=== PATIENT | male | born 1985 | race Two or more races ===

== ENCOUNTER 2024-11-13 10:18 | Emergency (ER) | payer MEDICAID, SELFPAY ==
[2024-11-13 10:39] VITALS: BP 134/81; PULSE 68; RESP 18; TEMP 37.1; O2SAT 98
--- NOTE | 2024-11-13 10:43 | PD.EDDENTL ---
ED Dental RME/HPI General Chief complaint: Dental/Oral/Throat Stated complaint: TOOTH INFECTION R) MAXILLA Time Seen by Provider: 11/13/24 10:25 Arrival date/time: 11/13/24 10:18 39-year-old male with no significant medical problems presents emergency department today for complaints of dental pain patient for symptoms ongoing for months has not yet follow-up with dental Limitations: no limitations Related Data Home Medications ?Medication ?Instructions ?Recorded ?Confirmed calcium carbonate 550 mg-magnesium 4 tab PO Q6H PRN Acid Reflux 04/17/22 04/17/22 hydroxide 110 mg chewable tablet Previous Rx's ?Medication ?Instructions ?Recorded clindamycin HCl 300 mg capsule 300 mg PO TID 7 days #21 caps 11/13/24 ibuprofen 600 mg tablet 600 mg PO Q6H #30 tabs 11/13/24 Allergies Allergy/AdvReac Type Severity Reaction Status Date / Time No Known Allergies Allergy Verified 11/13/24 10:22 Review of Systems Review of Systems Systems Reviewed: All systems reviewed, normal except as documented Constitutional Constitutional: Reports system reviewed and no additional complaints, except as documented, Denies fever(s) and Denies headache(s) Eyes Eyes: Reports system reviewed and no additional complaints, except as documented and Denies blurry vision ENT Ears, Nose, Mouth, and Throat: Reports system reviewed and no additional complaints, except as documented, Reports dental pain, Reports facial pain, Denies headache(s), Denies nasal congestion and Denies nasal discharge Cardiovascular Cardiovascular: Reports system reviewed and no additional complaints, except as documented, Denies chest pain and Denies dyspnea Respiratory Respiratory: Reports system reviewed and no additional complaints, except as documented, Denies chest congestion, Denies cough and Denies dyspnea Gastrointestinal Gastrointestinal: Reports system reviewed and no additional complaints, except as documented and Denies abdominal pain Integumentary/Breasts Skin/Breast: Reports system reviewed and no additional complaints, except as documented and Denies rash Neurologic Neurologic: Reports system reviewed and no additional complaints, except as documented, Reports as per HPI and Denies headache(s) Past Medical History Past Medical History CARDIAC: Negative Cardiac Disorders or Congestive Heart Failure RESPIRATORY: Negative Chronic Obstructive Pulmonary Disease (COPD) or Asthma GENITOURINARY: Negative Renal Disease ENDOCRINE: Negative Diabetes Mellitus Type 1 or Diabetes Mellitus Type 2 HEMATOLOGIC: Negative Sickle Cell Disease Social History SMOKING STATUS: Never smoker ED Exam General Limitations: Present no limitations General appearance: Present alert and in no apparent distress Head Head exam: Present atraumatic, normocephalic and normal inspection Eye Eye exam: Present normal appearance, PERRL and EOMI ENT ENT exam: Present mucous membranes moist and other (Dental pain) Neck Neck exam: Present normal inspection, full ROM and trachea midline Chest Chest inspection: Present normal inspection and symmetric chest wall rise Respiratory Respiratory exam: Present normal lung sounds bilaterally Cardiovascular Cardiovascular exam: Present regular rate, normal rhythm and normal heart sounds Abdominal Exam Abdominal exam: Present soft and normal bowel sounds Extremities Exam Extremities exam: Present normal inspection and full ROM Back Exam Back exam: Present normal inspection and full ROM Neurological Exam Neurological exam: Present alert, oriented X3 and CN II-XII intact Psychiatric Psychiatric exam: Present normal affect and normal mood Skin Skin exam: Present warm, dry, intact and normal color Course Quality Measures none Vital Signs Vital signs: Vital Signs Temperature 98.7 F 11/13/24 10:39 Pulse Rate 68 11/13/24 10:39 Respiratory Rate 18 11/13/24 10:39 Blood Pressure 134/81 H 11/13/24 10:39 Pulse Oximetry (%) 98 11/13/24 10:39 Oxygen Delivery Method Room Air 11/13/24 10:39 O2 saturation 98% room air WNL Dental / Oral MDM Narrative MDM Narrative:: 39-year-old male with no significant medical problems presents emergency department today for complaints of dental pain patient for symptoms ongoing for months has not yet follow-up with dental On exam patient well-appearing patient is not appear toxic patient does have poor dentition no definite dental abscess Patient was treated with antibiotics and pain medications active all within his symptoms possible Patient data External records reviewed:: [facility] previous records Clinical information provided by:: patient Social determinants that could affect healthcare access:: none Patient has the following chronic illnesses:: None How is presenting disease/condition affected by chronic disease/condition?: no chronic disease Evaluation data The following diagnostics were reviewed and interpreted by me:: other (specify) (N/A) Lab and/or radiology exams considered but not ordered:: Consider not ordered Interpretation Summary: . N/A Medications / Prescriptions Medications or Prescriptions considered but not ordered:: Given Medication administrations:: Given Consultations Consultation(s) initiated? (list below): No Diagnosis Dental Differential Diagnosis: gingival abscess, dental caries, toothache and dental abscess Most likely diagnosis given after review of the tests above:: Dental abscess Admission Indicated Admission indicated?: not indicated Admission Request Was there a request for admission?: No Disposition Plan Disposition Plan: Discharge Discharge Attestation Discharge Attestation: The patient and all family members were given an opportunity to ask questions and understood the discharge instructions. Discharge instructions specifically effects, indications for sooner follow up or return to the emergency department, and the expected course of current diagnosis. Patient condition: Stable Discharge Plan Plan Patient Disposition: HOME (Self Care) Disposition Comment: Stable Prescriptions/Referrals Prescriptions/Med Rec: New clindamycin HCl 300 mg capsule 300 mg PO TID 7 Days Qty: 21 0RF ibuprofen 600 mg tablet 600 mg PO Q6H Qty: 30 0RF No Action Rolaids 550-110 mg Tablet,Chewable 4 tab PO Q6H PRN (Reason: Acid Reflux) Rx Instructions: do not exceed 12 tabs in 24 hrs Problem List Clinical Impression: Abscess, dental Patient/Caregiver Discharge Instructions Education Materials: Dental Abscess Additional Instructions: Please follow up with your primary care doctor in the next 24-48hrs for any worsening symptoms return here immediately Print Language: Croatian Stand Alone Forms: Gretchen Award Info., Patient Portal Info Letter PA/COMMERCIAL ARTIST Supervising Physician PA/COMMERCIAL ARTIST Supervising Physician: Dr. rinaldi
== END 2024-11-13 10:52 | disposition home or self-care (01) ==
LOC: SERX 10:54
PROVIDERS: Emergency Provider Family Medicine
DX: K04.7 Periapical abscess without sinus (principal)
CPT/HCPCS: 99281

== ENCOUNTER 2025-02-06 12:05 | Emergency (ER) | payer OTHER, SELFPAY ==
[2025-02-06 12:06] VITALS: BMI 20.8
[2025-02-06 12:31] VITALS: BP 117/78; PULSE 88; RESP 20; TEMP 38; O2SAT 96
--- NOTE | 2025-02-06 12:42 | XR_ITS ---
Examination: AP upright chest single view TECHNIQUE: Upright AP chest single view Date and time: February 06, 2025 at 1242 hours INDICATIONS: Coughing shortness of breath beginning 5 days ago FINDINGS: Significant pneumonia left lower lung zone. Normal heart size Right lung clear IMPRESSION: Significant pneumonia left lower lung zone
--- NOTE | 2025-02-06 12:43 | EKG_ITS ---
[facility] Test Date: 2025-02-06 Pat Name: VIANEY SANDY Department: Room: - Gender: Male Graphics Intern: : 1985 Requested By: Sheri Olivo Order Number: [id number] Reading MD: Sheri Olivo Measurements Intervals [place] Rate: 70 P: 49 NV: 112 QRS: 59 QRSD: 90 T: 55 QT: 360 QTc: 389 Interpretive Statements SINUS RHYTHM WITH SHORT NV INTERVAL No previous ECG available for comparison /store/[email or web address]/[id number]
[2025-02-06] MEDS: MethylPREDNISolone SOD SUCC 62.5 MG/ML 2ML VIAL 125 MG IM (12:51)
[2025-02-06 13:04] LABS: Basophils # (Auto) 0.1 Thou/mm3 (0.0-0.2); Basophils % (Auto) 1 % (0-2.5); Eosinophils # (Auto) 0.1 Thou/mm3 (0.0-0.5); Eosinophils % (Auto) 1 % (0-10); Hematocrit 43.5 % (41.0-53.0); Hemoglobin 15.4 g/dL (13.5-16.0); Immature Granulocytes Auto 0.02 Thou/mm3 (0.00-0.00); Lymphocytes # (Auto) 0.9 Thou/mm3 (1.0-4.8); Lymphocytes % (Auto) 14 % (10-50); Mean Corpuscular HGB Conc 35.4 g/dl (31.0-37.0); Mean Corpuscular Hemoglobin 30.0 pg (25.0-35.0); Mean Corpuscular Volume 85 fL (80-100); Monocytes # (Auto) 0.6 Thou/mm3 (0.0-0.8); Monocytes % (Auto) 10 % (0-12); Neutrophils # (Auto) 4.7 Thou/mm3 (1.8-7.7); Neutrophils % (Auto) 75 % (37-80); Nucleated Red Blood Cell # 0.00 Thou/mm3 (0.00-0.00); Nucleated Red Blood Cell % 0 /100 WBC (0); Platelet Count 188 Thou/mm3 (140-440); RDW Standard Deviation 38.9 fL (35.1-43.9); Red Blood Count 5.14 Miln/mm3 (4.50-5.90); White Blood Count 6.4 Thou/mm3 (3.8-10.6)
[2025-02-06] MEDS: ALBUTEROL/IPRATROPIUM (Duoneb) RT SOL 3 ML NEBU INH (13:07)
[2025-02-06 13:09] VITALS: PULSE 106; RESP 20; O2SAT 99
[2025-02-06 13:25] LABS: Alanine Aminotransferase 19 U/L (10-49); Albumin, Serum 4.6 gm/dL (3.5-5.0); Albumin/Globulin Ratio 1.6 (1.2-2.2); Alkaline Phosphatase 70 U/L (46-116); Anion Gap 10 (7-16); Aspartate Amino Transferase 27 U/L (0-34); BUN/Creatinine Ratio 10 Ratio (12-20); Bilirubin,Total 1.7 mg/dL (0.3-1.2); Blood Urea Nitrogen 12 mg/dL (9-23); Calcium 9.7 mg/dL (8.3-10.6); Calcium (Corrected) 9.7 mg/dL (8.5-10.1); Carbon Dioxide 30.4 mMol/L (20.0-31.0); Chloride 100 mMol/L (98-107); Creatinine (Component) 1.2 mg/dL (0.6-1.3); Estimated Creatinine Clearance 68.4 mL/min (>60); Globulin 2.9 gm/dL (2.3-3.5); Glucose 103 mg/dL (74-106); Osmolality,Calculated 279 (275-295); Potassium 4.0 mMol/L (3.4-5.1); Sodium 140 mMol/L (136-145); Total Protein 7.5 gm/dL (5.7-8.2); Troponin I < 0.020 ng/mL (0.0-0.045); eGFR > 60 See Note
[2025-02-06 13:57] LABS: B-Type Natriuretic Peptide < 20 pg/mL (0-100)
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
[2025-02-06] MEDS: ACETAMINOPHEN 500 MG TABLET 1000 MG PO (15:03)
[2025-02-06] MEDS: cefTRIAXone 1,000 MG, LIDOCAINE 1% 20 ML 2.1 ML IM (15:03)
[2025-02-06 15:15] VITALS: BP 126/72; PULSE 88; RESP 18; TEMP 36.6; O2SAT 97
== END 2025-02-06 15:16 | disposition home or self-care (01) ==
PROVIDERS: Nurse Practitioner Family; Emergency Provider Emergency Medicine; PCP Family Medicine
DX: J18.9 Pneumonia, unspecified organism (principal)
CPT/HCPCS: 36415; 71045; 80053; 83880; 84484; 85025; 94640; 96372; 99284; A9270; J0696; J2919; J3490

== ENCOUNTER → 2025-06-07 | Outpatient (CLI) | payer MEDICAID, SELFPAY ==
--- NOTE | 2025-06-07 09:00 | XR_ITS ---
EXAMINATION: Esophagram standard Fluoroscopy 34 spot fluoroscopic films of the esophagus Upright PA chest single view Upright soft tissue lateral neck single view Date and time: June 07, 2025, 0916 hours INDICATIONS: Difficulty swallowing 2 years TECHNIQUE AND FINDINGS: Upright PA chest single view demonstrates normal heart size, clear lungs Soft tissue lateral neck single view demonstrates normal epiglottis no opaque foreign body Patient swallowed thin barium with 34 spot fluoroscopic films of the esophagus obtained Numerous secondary tertiary esophageal contractions Moderate intermittent gastroesophageal reflux There is no stricture at the gastroesophageal junction No constricting esophageal lesion No sliding esophageal hernia Fluoroscopy 0.6 minutes radiation dose 52.34 mGy IMPRESSION: Significant esophageal dysmotility Moderate intermittent gastroesophageal reflux. No constricting esophageal lesion
== END | disposition home or self-care (01) ==
LOC: SDIM 09:02
PROVIDERS: PCP Nurse Practitioner Family; Referring Provider Nurse Practitioner Family; Visit Provider Nurse Practitioner Family
DX: K21.9 Gastro-esophageal reflux disease without esophagitis (principal); K22.89 Other specified disease of esophagus
CPT/HCPCS: 74220; A4649